=== PATIENT | female | born 1985 | race Two or more races ===

== ENCOUNTER 2018-06-04 02:37 | Emergency (ER) | payer MEDICAID, OTHER ==
[~2018-06-04] VITALS: Ht 165.1 cm; Wt 79.8 kg
[2018-06-04] MEDS ORDERED: IV NS 0.9% 1,000 ML BAG IV ONE (03:00)
[2018-06-04] MEDS ORDERED: FAMOTIDINE/PF INJ 20 MG/2 ML VIAL IV ONE ×2 (03:00→03:20)
[2018-06-04] MEDS ORDERED: diphenhydrAMINE HCL 50 MG/ML VIAL IV ONE ×2 (03:00→04:30)
[2018-06-04] MEDS ORDERED: methylPREDNISolone SOD SUCC 125 MG/2ML VIAL IV ONE (03:00)
--- NOTE | 2018-06-04 03:10 | NUR ---
BIBS, C/O " TOOK LEVOMYSETIN 20 MG TOTAL NOTICED FACIAL REDNESS + SWELLING X ^ HRS, TOOK BENADRY, NO HELP" -SO, + ITCHING, -N/V AND DIZZINES.
[2018-06-04] MEDS ORDERED: diphenhydrAMINE HCL 50 MG/ML VIAL ONE ×2 (03:19→04:12)
[2018-06-04] MEDS ORDERED: methylPREDNISolone SOD SUCC 125 MG/2ML VIAL ONE (03:20)
--- NOTE | 2018-06-04 05:02 | NUR ---
Patient discharged to home in stable condition. Written and verbal after care instructions given. Patient verbalizes understanding of instruction.
[2018-06-04 05:06] VITALS: BP 110/61
== END 2018-06-04 05:07 | disposition home or self-care (01) ==
LOC: ER 02:48
DX: T47.6X5A Adverse effect of antidiarrheal drugs, initial encounter (principal); Y92.89 Other specified places as the place of occurrence of the external cause
CPT/HCPCS: 96374; 96375; 96376; 99283; A4606; J1200 ×2; J2930; J3490; J7030

== ENCOUNTER 2018-06-04 13:38 | Emergency (ER) | payer MEDICAID, OTHER ==
[~2018-06-04] VITALS: Ht 165.1 cm; Wt 74.8 kg
--- NOTE | 2018-06-04 13:46 | NUR ---
BIB SELF W C/O ALLERGIC REACTION SINCE YESTERDAY, NO RELIEF FROM MEDICATION YESTERDAY. TO ER BED 4, HOOKED TO MONITOR, AWAITING MD CAMARILLO
--- NOTE | 2018-06-04 13:58 | NUR ---
RUFINA GOLDBERGT AT BEDSIDE
[2018-06-04] MEDS ORDERED: diphenhydrAMINE HCL 50 MG/ML VIAL ONE (14:16)
[2018-06-04] MEDS ORDERED: FAMOTIDINE (20 MG) 20 MG TABLET ONE (14:17)
[2018-06-04] MEDS ORDERED: LORATADINE 10 MG TABLET ONE (14:17)
[2018-06-04] MEDS ORDERED: diphenhydrAMINE HCL 50 MG/ML VIAL IM ONE (14:30)
[2018-06-04] MEDS ORDERED: LORATADINE 10 MG TABLET PO SCH (14:30)
[2018-06-04] MEDS ORDERED: FAMOTIDINE (20 MG) 20 MG TABLET PO ONE (14:30)
--- NOTE | 2018-06-04 14:55 | NUR ---
Patient discharged to home in stable condition. Written and verbal after care instructions given. Patient verbalizes understanding of instruction.
[2018-06-04 14:59] VITALS: BP 139/84
== END 2018-06-04 15:00 | disposition home or self-care (01) ==
LOC: ER 13:40
DX: T47.6X5A Adverse effect of antidiarrheal drugs, initial encounter (principal); J06.9 Acute upper respiratory infection, unspecified; Y92.89 Other specified places as the place of occurrence of the external cause
CPT/HCPCS: 96372; 99283; A4606; J1200